=== PATIENT | male | born 1940 | race Two or more races ===

== ENCOUNTER → 2017-12-07 06:25 | Outpatient (CLI) | payer OTHER ==
[~2017-12-07 06:25] MED LIST: NORVASC5 MG PO
== END | disposition home or self-care (01) ==
LOC: LAB 06:25
DX: D64.89 Other specified anemias (principal); E88.89 Other specified metabolic disorders; D68.8 Other specified coagulation defects; N39.0 Urinary tract infection, site not specified

== ENCOUNTER → 2017-12-07 06:32 | Outpatient (CLI) | payer OTHER | END | disposition home or self-care (01) | LOC: RAD 06:32 | DX: Z76.89 Persons encountering health services in other specified circumstances (principal) ==

== ENCOUNTER → 2017-12-07 06:35 | Outpatient (CLI) | payer OTHER | END | disposition home or self-care (01) | LOC: EKG 06:35 | DX: I49.8 Other specified cardiac arrhythmias (principal) ==

== ENCOUNTER 2017-12-12 12:30 | Outpatient (CLI) | payer OTHER ==
[2017-12-13] MEDS ORDERED: NORVASC5 MG PO (08:09)
== END 2017-12-12 12:37 | disposition home or self-care (01) ==
LOC: RAD 12:30
DX: M24.551 Contracture, right hip (principal)

== ENCOUNTER 2017-12-12 13:58 | Inpatient (IN) | payer OTHER ==
[~2017-12-12] VITALS: Ht 175.3 cm; Wt 97.5 kg
[2017-12-13] MEDS ORDERED: NORVASC5 MG PO (08:09)
== END 2017-12-21 13:26 | disposition home or self-care (01) | DRG 470 ==
LOC: O/R 12-18 06:30 → SURG 12-18 06:30 → CIR.AMB 12-18 13:57 → EDSTATUS 12-18 13:57 → SURG 12-18 20:28
PROVIDERS: Orthopaedic Surgery
PROC: 0SRC0J9 Replacement of Right Knee Joint with Synthetic Substitute, Cemented, Open Approach (ICD-10-PCS; principal; 2017-12-18 13:45)
DX: M17.11 Unilateral primary osteoarthritis, right knee (principal)